=== PATIENT | female | born 1975 | race African-American/Black ===

== ENCOUNTER 2025-02-01 09:09 | Outpatient (REF) | payer OTHER, SELFPAY ==
[2025-02-01 10:17] LABS: MANUAL DIFF FLAG NO
[2025-02-01 10:24] LABS: Hematocrit 34.4 % (37.0-47.0); Hemoglobin 10.0 g/dl (12.0-16.0); Imm Gran Abs Auto 0.05 X10*3/uL (0.00-0.03); Imm Gran Pct Auto 0.4 % (0.0-0.4); Lymphocytes Absolute Auto 3.9 X10*3/uL (1.2-4.9); Mean Corpuscular HGB Conc 29.1 g/dl (31.0-35.0); Mean Corpuscular Hemoglobin 21.5 pg (27.0-33.0); Mean Corpuscular Volume 73.8 fL (80.0-98.0); NRBC Abs Auto 0.000 X10*3/uL (0.0-0.012); NRBC Pct Auto 0.0 /100WBC (0.0-0.2); Platelet Count 423 X10*3/uL (160-400); Red Blood Count 4.66 X10*6/uL (4.20-5.50); White Blood Count 12.1 X10*3/uL (4.8-10.8)
[2025-02-01 11:46] LABS: Alanine Aminotransferase 20 U/L (0-31); Albumin Level 4.7 g/dL (3.5-5.0); Alkaline Phosphatase 89 U/L (39-117); Anion Gap 11 (12-20); Aspartate Amino Transferase 20 U/L (5-31); Blood Urea Nitrogen 12 mg/dL (9-16); Calcium 9.6 mg/dL (8.4-10.2); Carbon Dioxide 26 mmol/L (22-29); Chloride 109 mmol/L (96-108); Cholesterol 191 mg/dL (<200); Estimated Glomerular Filt Rate 55; HDL Cholesterol 32 mg/dL (>40); Iron 16 mcg/dL (30-160); Percent Iron Saturation 5 % (15-50); Potassium 4.3 mmol/L (3.3-5.1); Sodium 142 mmol/L (135-145); Total Iron Binding Capacity 340 mcg/dL (228-428); Total Protein 8.1 g/dL (6.5-8.0); Triglycerides 222 mg/dL (<150); Unsaturated Iron Binding 324 ug/dL
[2025-02-01 11:49] LABS: Ferritin 11 ng/mL (10-250)
[2025-02-01 11:54] LABS: Microalbum/Creatinine Ratio Ur 59.2 ug/mg cr (<30)
[2025-02-01 11:59] LABS: Vitamin B12 1081 pg/mL (200-900)
== END 2025-02-01 09:10 | disposition home or self-care (01) ==
LOC: HO.10HDL 09:09
PROVIDERS: Visit Provider Internal Medicine
DX: I12.0 Hypertensive chronic kidney disease with stage 5 chronic kidney disease or end stage renal disease (principal); I50.9 Heart failure, unspecified; R73.01 Impaired fasting glucose; D64.9 Anemia, unspecified; G47.33 Obstructive sleep apnea (adult) (pediatric)
CPT/HCPCS: 36415; 80053; 80061; 82043; 82570; 82607; 82728; 83036; 83540; 84443; 85025